=== PATIENT | male | born 1970 | race Caucasian/White ===

== ENCOUNTER → 2018-10-06 | Day surgery (SDC) | payer OTHER ==
[~2018-10-06] MED LIST: IV RINGERS,LACTATED 1000ML 1,000 ML IV SCH; LIDOCAINE 2% PF 5 ML VIAL. ONE; PROPOFOL 40 ML IV ONE
[2018-10-06 08:10] VITALS: BP 141/88
--- NOTE | 2018-10-09 11:08 | PATHOLOGY ---
[facility] Accession Number: [id number] . 01 Material submitted: . colon - RANDOM COLON BIOPSY . 01 Clinical history: . Abdominal pain . 01 Frozen section diagnosis: . . /QMS . 02 Diagnosis: Colonic mucosa "random colon biopsies: - No obvious diagnostic changes. - There is no evidence of acute cryptitis, granulomas, adenomatous change, changes of microscopic colitis or malignancy. (SHA:vivian; 10/09/2018) QMS/10/09/2018 . 02 Electronically signed: . Crescencio Teixeira MD, Pathologist NPI- [id number] . 01 Gross description: . Received in formalin labeled "Shraddha, Ramana, random colon BX," are multiple segments of dobson soft tissue measuring 2.0 x 1.0 x 0.2 cm in aggregate dimensions. The specimen is filtered and entirely submitted in cassette A1. (TSD; 10/06/2018) TOB/TOB . 02 Pathologist provided ICD-10: R10.9 . 02 CPT . 634090 Specimen Comment: A courtesy copy of this report has been sent to Specimen Comment: [phone], . Specimen Comment: Report sent to / DR PHILLIPS Specimen Comment: A duplicate report has been generated due to demographic updates. Performed at: 01 [facility] [address], [place] [id number] MD Veto Kramer MD Phone: [phone] Performed at: 02 [facility] [address] [place], [place] [id number] MD Julian Buckner MD Phone: [phone]
== END ==
LOC: SURG 06:02
PROVIDERS: ATTEND Internal Medicine Gastroenterology
DX: K64.0 First degree hemorrhoids (principal); K21.9 Gastro-esophageal reflux disease without esophagitis; I10 Essential (primary) hypertension; M19.90 Unspecified osteoarthritis, unspecified site; E66.3 Overweight; Z72.89 Other problems related to lifestyle; Z79.899 Other long term (current) drug therapy; Z98.890 Other specified postprocedural states
CPT/HCPCS: 45380; 88305; J2001; J2704

== ENCOUNTER → 2019-02-14 | Outpatient (CLI) | payer OTHER ==
[2018-10-06 08:10] VITALS: BP 141/88
--- NOTE | 2019-02-14 16:13 | KCIC ---
EXAM: Bilateral hands, 3 views. HISTORY: Polyarthralgia. COMPARISON: None. FINDINGS: 3 views of both hands are obtained. There is a healed left fifth metacarpal fracture. There is a corticated ossicle adjacent to the distal radial metaphysis likely due to a chronic nonunited fracture fragment. There is also a tiny chronic corticated ossicle adjacent to the right trapezium due to the sequela of remote injury. There is mild right first carpometacarpal spurring. There is degenerative spurring involving the second, fourth and fifth distal interphalangeal joints on the left. IMPRESSION: 1. No acute osseous finding 2. Mild left second, fourth and fifth distal interphalangeal joint and right first carpometacarpal joint osteoarthritis. 3. Chronic healed and left fifth metacarpal fracture and chronic corticated ossicles along the radial aspects of both wrists, likely due to sequela of remote injury. Electronically signed by: Zeinab Nogueira MD (02/14/2019 4:10 PM) [facility]
== END | disposition home or self-care (01) ==
LOC: KCIC 15:46
PROVIDERS: ATTEND Internal Medicine Rheumatology
DX: M19.042 Primary osteoarthritis, left hand (principal); M18.9 Osteoarthritis of first carpometacarpal joint, unspecified
CPT/HCPCS: 73130

== ENCOUNTER → 2020-07-04 | Outpatient (CLI) | payer OTHER ==
[2018-10-06 08:10] VITALS: BP 141/88
--- NOTE | 2020-07-04 16:32 | KCIC ---
MR CERVICAL SPINE WO History:Reason: CERVICAL RADICULOPATHY / Spl. Instructions: / History: Pain deep inside head, headac hes. Prior fusion. Technique: Multiplanar, multi sequential noncontrast MR imaging was performed of the cervical spine. Comparison: CT June 11, 2020 Findings: Anterior stabilization and interbody fusion C5-C7. Slight grade 1 anterolisthesis C7 on T1. Chronic T 1 superior hepatic compression deformity. No acute fracture. Tiny focus of increased or signal within the cervical spinal cord at the C3-C4 level. C2-C3: No canal narrowing. Uncovertebral and facet arthropathy. Moderate to severe left and mild rig ht neuroforaminal narrowing. C3-C4: Posterior disc osteophyte complex. Mild canal narrowing. Cord flattening. Uncovertebral and f acet arthropathy. Severe left and moderate to severe right neuroforaminal narrowing. C4-C5: Posterior disc osteophyte complex. Mild canal narrowing. Cord flattening. Uncovertebral and f acet arthropathy. Severe bilateral neural foraminal narrowing. C5-C6: Intervertebral fusion. Mild cord flattening. No canal narrowing. Uncovertebral and the left a nd facet arthropathy bilaterally. Mild left neuroforaminal narrowing. C6-C7: Intervertebral fusion. No canal narrowing. No neuroforaminal narrowing. Facet arthropathy. C7-T1: Anterolisthesis. Small central disc extrusion. Abutment of the ventral cord with mild flatten ing. Mild anterior canal narrowing. Dorsal CSF is effaced is preserved. Mild neuroforaminal narrowing . Facet arthropathy. Additional upper thoracic facet arthropathy with neuroforaminal narrowing. Impression: 1. Multilevel cervical spondylosis most prominent C3-C4 and C4-C5. 2. C3-C4 mild canal narrowing with cord flattening with small focus of cord signal abnormality, may represent myelomalacia, less likely early cord edema. 3. C4-C5 mild canal narrowing with cord flattening. 4. C7-T1 central disc extrusion contributing to cord flattening and cord abutment. 5. Multilevel neuroforaminal narrowing most prominent left C3-C4 and bilateral C4-C5. Electronically signed by: Dustin Anderson DO (07/04/2020 4:29 PM) [id number]
== END ==
LOC: KCIC MRI 10:11
PROVIDERS: ATTEND Neurological Surgery
DX: M47.23 Other spondylosis with radiculopathy, cervicothoracic region (principal); M48.03 Spinal stenosis, cervicothoracic region; M43.13 Spondylolisthesis, cervicothoracic region; M43.22 Fusion of spine, cervical region
CPT/HCPCS: 72141